=== PATIENT | male | born 1965 | race Two or more races ===

== ENCOUNTER 2021-04-05 23:41 | Emergency (ER) | payer OTHER ==
[~2021-04-05] VITALS: Ht 177.8 cm; Wt 93.4 kg
[2021-04-06] MEDS ORDERED: GENTAK5 ML OP (02:07)
== END 2021-04-06 | disposition home or self-care (01) ==
LOC: ER 23:41
DX: H57.11 Ocular pain, right eye (principal); R45.4 Irritability and anger

== ENCOUNTER → 2021-07-03 | Emergency (ER) | payer OTHER ==
[~2021-07-03] VITALS: Ht 177.8 cm; Wt 95.3 kg
[~2021-07-03] MED LIST: GENTAK5 ML OP
== END | disposition home or self-care (01) ==
LOC: ER 18:10
DX: S62.101A Fracture of unspecified carpal bone, right wrist, initial encounter for closed fracture (principal); Y92.89 Other specified places as the place of occurrence of the external cause; Y99.0 Civilian activity done for income or pay; W19.XXXA Unspecified fall, initial encounter